=== PATIENT | female | born 1985 | race Caucasian/White ===

== ENCOUNTER 2019-06-03 13:18 | Emergency (ER) | payer SELFPAY ==
[2019-06-03 13:29] VITALS: BP 130/78; PULSE 87; RESP 16; TEMP 36.8; O2SAT 100; BMI 29.2
--- NOTE | 2019-06-03 14:15 | ED_ITS ---
Entered by Ciarra Morel, acting as scribe for Tyrell Garcia DO Jun 03, 2019 13:18 HPI - SOB/Dyspnea General: Chief Complaint: Shortness of Breath/Dyspnea Stated Complaint: flu s/s Time Seen by Provider: 06/03/19 14:15 PFSH ED PFSH: Social History Smoking and tobacco status: current every day smoker Female Reproductive History: Date of last menstrual period: 05/05/19 Course Vital Signs: Vital signs: Vital Signs Temperature 98.3 F 06/03/19 13:29 Pulse Rate 87 06/03/19 13:29 Respiratory Rate 16 06/03/19 13:29 Blood Pressure 130/78 06/03/19 13:29 Pulse Oximetry 100 06/03/19 13:29 Coding Level of Care Code ED 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
[2019-06-03 14:23] LABS: Influenza A by IFA Negative (Negative); Influenza B by IFA Positive (Negative)
--- NOTE | 2019-06-03 14:36 | W.ED.GENADLT ---
HPI - General Adult General: Chief complaint: Shortness of Breath/Dyspnea Stated complaint: flu s/s Time Seen by Provider: 06/03/19 14:15 History of Present Illness: HPI narrative: Patient complains of cough fever chills since yesterday is not short of breath. complaint: Flu Onset (ago): day(s) Severity scale (1-10): 6 Relieving factors: none Exacerbating factors: none Associated symptoms: Reports cough and fevers/chills; Deny chest pain, dyspnea, headache(s), nausea, rash or vomiting Review of Systems Const: Reports: fever, chills and body aches Eyes: Denies: change in vision or blurry vision ENMT: Denies: throat pain or nasal congestion Card: Denies: chest pain or shortness of breath on exertion Resp: Reports: non-productive cough; Denies: shortness of breath or productive cough GI: Denies: abdominal pain, nausea or vomiting Musc: Denies: extremity pain Skin/Breast: Denies: rash Neuro: Denies: headache Psych: Denies: anxiety or depression Jeremiah/Lymph: Denies: easy bruising PFSH ED PFSH: Social History Smoking and tobacco status: current every day smoker Female Reproductive History: Date of last menstrual period: 05/05/19 Physical Exam Const: COMMON NORMALS: no apparent distress, average body habitus and oriented x3 HENMT: COMMON NORMALS: normocephalic HEAD & SCALP: normal to inspection and normocephalic FACE & SINUS: normal facial exam Eye: COMMON NORMALS: conjunctivae normal GENERAL EYE: normal appearance of both eyes CONJUNCTIVA: Yes conjunctivae normal Neck/C-Spine: COMMON NORMALS: no JVD Chest: COMMONS NORMALS: inspection of chest normal Resp: COMMON NORMALS: normal respiratory effort and clear to auscultation bilaterally AUSCULTATION: clear to auscultation bilaterally Cardio: COMMON NORMALS: no JVD, regular rate and regular rhythm RATE: regular rate RHYTHM: regular rhythm GI: COMMON NORMALS: normal to inspection, nondistended, normoactive bowel sounds Extremity: COMMON NORMALS: normal to inspection and full ROM Neuro: COMMON NORMALS: oriented x3 Course Vital Signs: Vital signs: Vital Signs Temperature 98.3 F 06/03/19 13:29 Pulse Rate 87 06/03/19 13:29 Respiratory Rate 16 06/03/19 13:29 Blood Pressure 130/78 06/03/19 13:29 Pulse Oximetry 100 06/03/19 13:29 MDM - General Adult Lab Data: Labs: Lab Results 06/03/19 Range/Units 13:37 Influenza Type A A g Negative (Negative) POC Influenza B Ag Positive H (Negative) Discharge Plan Discharge Patient Disposition: Home, Self-Care Clinical Impression: Influenza Condition: Stable Prescriptions: New Tamiflu 75 mg capsule 75 mg PO BID 5 Days Qty: 10 RF: 0 Discharge Orders: Discharge Order (Routine); Ordered 06/03/19 Ordered By: Gerhard Fairbanks Discharge Diet: Advance as tolerated Discharge Activity: Increase activity as tolerated Patient Instructions: Influenza (ED) Activity Restrictions/Additional Instructions: Follow-up with medical provider as directed. Take medications as prescribed. Return to the ER or your medical provider if condition worsens. Please read and understand discharge instructions. If any questions ask please. Stand Alone Forms: Work/School Release Coding Level of Care Code ED Car Pick Up Driver for Kapil Finney
[2019-06-03 14:42] VITALS: BP 128/80; PULSE 79; RESP 15; O2SAT 97
== END 2019-06-03 14:43 | disposition home or self-care (01) ==
PROVIDERS: Emergency Medicine; Emergency Provider Nurse Practitioner Family
DX: J11.1 Influenza due to unidentified influenza virus with other respiratory manifestations (principal); F17.200 Nicotine dependence, unspecified, uncomplicated
CPT/HCPCS: 12345; 87804; 99282

== ENCOUNTER → 2020-02-26 14:27 | Outpatient (BNVA) | payer SELFPAY | PROVIDERS: Visit Provider Nurse Practitioner Family | DX: Z20.828 Contact with and (suspected) exposure to other viral communicable diseases (principal) | CPT/HCPCS: 87635 ==

== ENCOUNTER 2021-01-01 08:26 | Emergency (ER) | payer SELFPAY ==
[2021-01-01 08:35] VITALS: BP 145/84; PULSE 82; RESP 18; TEMP 36.1; O2SAT 100; BMI 28.8
--- NOTE | 2021-01-01 09:00 | USR_ITS ---
PROCEDURE INFORMATION: Exam: US Pelvis Complete, Transabdominal and US Pelvis, Transvaginal Exam date and time: 01/01/2021 9:00 AM Age: 35 years old Clinical indication: Pelvic pain; Additional info: L pelvic pain TECHNIQUE: Imaging protocol: Real-time transabdominal and transvaginal pelvic ultrasound (complete) with image documentation. Transvaginal imaging was used for better evaluation of the endometrium, adnexa, and/or cervix. COMPARISON: CR Sacrum and Coccyx [id number] 10/07/2018 11:52 AM FINDINGS: Uterus/cervix: Submucosal mass consistent with fibroid estimated at 2 cm. Trace fluid in the endometrial canal. Endometrial stripe is normal. Right adnexa: Normal. No mass. Normal ovarian blood flow. Left adnexa: 2 x 2.7 cm cyst. No mass. Normal ovarian blood flow. Intraperitoneal space: Minimal intraperitoneal fluid. Urinary bladder: Normal. US/US pelvic with transvaginal IMPRESSION: Probable submucosal fibroid. Minimal free fluid. Radiation Dose CTDIVOL = (mGy): DLP = (mGy-cm)
--- NOTE | 2021-01-01 09:00 | CTR_ITS ---
PROCEDURE INFORMATION: Exam: CT Abdomen And Pelvis With Contrast Exam date and time: 01/01/2021 9:00 AM Age: 35 years old Clinical indication: Abdominal pain; Additional info: Abd pain TECHNIQUE: Imaging protocol: Computed tomography of the abdomen and pelvis with contrast. Radiation optimization: All CT scans at this facility use at least one of these dose optimization techniques: automated exposure control; mA and/or kV adjustment per patient size (includes targeted exams where dose is matched to clinical indication); or iterative reconstruction. Contrast material: OMNI 300; Contrast volume: 95 ml; Contrast route: INTRAVENOUS (IV); COMPARISON: US pelvic with transvaginal 01/01/2021 9:45 AM RADIATION DOSE METRICS: Total DLP (mGy-cm): 1232.63 FINDINGS: Liver: No mass. Gallbladder and bile ducts: Unremarkable. No ductal dilation. Pancreas: Normal. No ductal dilation. Spleen: Normal. No splenomegaly. Adrenal glands: Normal. No mass. Kidneys and ureters: Normal. No hydronephrosis. Stomach and bowel: Colonic bowel wall thickening extending from the cecum to the sigmoid colon, most prominent in the ascending colon. No pneumatosis. No bowel obstruction. No small bowel wall thickening Appendix: No evidence of appendicitis. Intraperitoneal space: Minimal free fluid in the pelvis, no pneumoperitoneum or abscess. Vasculature: No abdominal aortic aneurysm. Lymph nodes: No significant adenopathy. Urinary bladder: Underdistended but unremarkable. Reproductive: Rounded 3 cm uterine lesion consistent with submucosal fibroid. Smaller rounded enhancing lesion in the uterine fundus consistent with fibroid estimated at 1.5 cm. Bones/joints: No acute findings. Soft tissues: Unremarkable. CT/CT abdomen pelvis w con* [id number] IMPRESSION: Colitis. Additional findings as above. Radiation Dose CTDIVOL = (mGy): DLP = 1232.63 (mGy-cm)
[2021-01-01] MEDS: ondansetron 2 mg/ML SDV 2 mL 4 MG IVP ×2 (09:02→13:04)
[2021-01-01] MEDS: sodium chloride 0.9% 1,000 ML 999 ML IV ×2 (09:02→12:55)
--- NOTE | 2021-01-01 09:03 | W.ED.ABDPA2 ---
HPI - Abdominal Pain General: Chief Complaint: Abdominal Pain Stated Complaint: LLQ SHARP ABD PAIN, N/V/D Time Seen by Provider: 01/01/21 08:38 History of Present Illness: HPI narrative: 35-year-old female presents emergency room with left lower quadrant abdominal pain with nausea vomiting diarrhea is feeling for 3 days. She thought she seen a little bit of blood in the stools she has been having excessive diarrhea. She states she had a poor appetite and has had vomiting. Denies any hematemesis or coffee-ground emesis. She denies any dysuria urgency or frequency. No previous surgeries. MD elicited complaint: abdominal pain Onset (ago): day(s) (3) Pain Consistency: intermittent and colicky Location: LLQ Severity: mild Quality: cramping Radiation: none Migration to: no migration Exacerbating factors: nothing Relieving factors: nothing Associated Symptoms: Reports anorexia, bloating, change in bowel habits, change in stool character, GI cramping and hematochezia; Denies belching, chills, coffee ground emesis, constipation, diarrhea, dyspepsia, dysuria, excessive flatus, fever(s), heartburn, hematuria, hematemesis, fecal incontinence, loose stools, melena, nausea, poor appetite, syncope and vomiting Related Data: Date of Last Menstrual Period: 05/05/19 Review of Systems Const: Denies: fever(s) or chills ENMT: Denies: throat pain, ear or mastoid pain, nasal discharge or nasal congestion Card: Denies: syncope Resp: Denies: dyspnea, productive cough or non-productive cough GI: Reports: bloating, GI cramping, change in bowel habits, change in stool character and hematochezia; Denies: nausea, vomiting, hematemesis, coffee ground emesis, heartburn, diarrhea, constipation, belching, excessive flatus, fecal incontinence or melena : Denies: dysuria or hematuria Skin/Breast: Denies: rash or pruritus PFSH ED PFSH: Social History Smoking and tobacco status: current every day smoker Female Reproductive History: Date of last menstrual period: 05/05/19 Physical Exam Const: COMMON NORMALS: no acute distress GENERAL APPEARANCE: cooperative and comfortable ORIENTATION/CONSCIOUSNESS: Yes awake, Yes oriented to person, Yes oriented to place and Yes oriented to time HENMT: COMMON NORMALS: normocephalic, atraumatic and hearing grossly normal bilaterally HEAD & SCALP: normocephalic and atraumatic Neck/C-Spine: COMMON NORMALS: no JVD Lymph: LYMPHATIC: no lymphadenopathy noted and no lymphedema noted Resp: COMMON NORMALS: normal respiratory effort, No retractions, No use of accessory muscles and clear to auscultation bilaterally AUSCULTATION: clear to auscultation bilaterally Cardio: COMMON NORMALS: no JVD, regular rate, regular rhythm and No murmurs present (Cardio) RATE: regular rate RHYTHM: regular rhythm GI: COMMON NORMALS: Soft to palpation and No hepatosplenomegaly present AUSCULTATION: Yes normoactive bowel sounds PALPATION: Yes Soft to palpation, No Tenderness to palpation present (GI), No Guarding due to palpation present (GI) and Yes No hepatosplenomegaly present Extremity: COMMON NORMALS: normal to inspection, capillary refill normal, no clubbing, cyanosis or edema, no calf tenderness and no pedal edema Neuro: SENSORIUM/ORIENTATION: Yes oriented to person, Yes oriented to place and Yes oriented to time Skin: COMMON NORMALS: no rashes or lesions noted GENERAL SKIN EXAM: no rashes or lesions noted Course Vital Signs: Vital signs: Vital Signs Temperature 97.0 F L 01/01/21 08:35 Pulse Rate 82 01/01/21 08:35 Respiratory Rate 18 01/01/21 13:04 Blood Pressure 145/84 01/01/21 08:35 Pulse Oximetry 100 01/01/21 08:35 MDM - Abdominal Pain MDM Narrative: Medical decision making narrative: Labs imaging reviewed. Discussed the patient will discharge patient home on Cipro and Flagyl. She does look like she has a colitis on imaging additionally she has a mild cystitis Cipro should cover in both cases. Clinical diet for 48 hours and advance as tolerated return if has problems. Lab Data: Labs: Lab Results 01/01/21 01/01/21 01/01/21 09:00 09:00 09:00 WBC 15.8 10^3/uL H 10 ^3/uL (4.0-10.0) RBC 4.72 10^6/uL 10^6 /uL (4.1-5.3) Hgb 14.9 g/dL g/dL (11.5-15.3) Hct 43.3 % % (37.0-47.0) MCV 91.7 fl fl (81-99) MCH 31.6 pg pg (28.0-34.0) MCHC 34.4 g/dL g/dL (30.0-36.0) RDW 12.0 % L % (12.1-15.1) Plt Count 279 10^3/cmm 10^3 /cmm (130-400) MPV 10.1 fL fL (7.4-10.4) Neut % (Auto) 80.4 % % Lymph % (Auto) 11.5 % % [place] % (Auto) 6.7 % % Eos % (Auto) 0.6 % % Baso % (Auto) 0.4 % % Neut # (Auto) 12.69 10^3/uL H 1 0^3/uL (1.8-7.7) Lymph # (Auto) 1.8 10^3/uL 10^3/ uL (0.8-4.8) [place] # (Auto) 1.1 10^3/uL H 10^ 3/uL (0.2-0.9) Eos # (Auto) 0.1 10^3/uL 10^3/ uL (0.0-0.8) Baso # (Auto) 0.1 10^3/uL 10^3/ uL (0.0-0.1) Nucleated RBC % (a uto) 0 % % Nucleated RBCs # 0.0 /100WBC /100W BC Sodium 134 mmol/L L mmol /L (136-145) Potassium 3.5 mmol/L mmol/L (3.5-5.1) Chloride 96 mmol/L L mmol/ L (98-107) Carbon Dioxide 26 mmol/L mmol/L (22-29) Anion Gap 15.5 (5-19) BUN 11 mg/dL mg/dL (6-20) Creatinine 0.6 mg/dL mg/dL (0.5-0.9) GFR Calculation 114.4 mL/min mL/m in (90-130) Glucose 100 mg/dL mg/dL (65-115) Calculated Osmolal ity 277 mOsm/kg L mOs m/kg (285-295) Calcium 9.3 mg/dL mg/dL (8.5-10.5) Total Bilirubin 0.4 mg/dL mg/dL (0.15-1.2) AST 14 U/L U/L (0-32) ALT 13 U/L U/L (0-33) Alkaline Phosphata se 83 IU/L IU/L (35-105) Total Protein 7.8 g/dL g/dL (6.6-8.7) Albumin 4.0 g/dL g/dL (3.5-5.2) Globulin 3.8 g/dL g/dL (1.3-4.6) HCG, Qual Urine Color Yellow (Yellow) Urine Appearance Sl hazy (CLEAR) Urine pH 6 (5-7) Ur Specific Gravit y 1.010 (1.005-1.030) Urine Protein 3+ H (Negative) Urine Glucose (UA) Norm (Normal) Urine Ketones 2+ H (Negative) Urine Blood 3+ H (Negative) Urine Nitrate Negative (Negative) Urine Bilirubin Neg (Negative) Urine Urobilinogen Norm mg/dL mg/dL (Negative) Ur Leukocyte Renetta ase Negative (Negative) Urine RBC 10-15 /hpf H /hpf (0-2) Urine WBC 5-10 /hpf H /hpf (0-5) Ur Squamous Epith Cells 10-15 /hpf H /hpf (0-5) Amorphous Sediment Not Reportable Urine Bacteria 1+ /hpf H /hpf (NONE) Urine Mucus 1+ /hpf /hpf 01/01/21 01/01/21 09:00 11:50 WBC RBC Hgb Hct MCV MCH MCHC RDW Plt Count MPV Neut % (Auto) Lymph % (Auto) [place] % (Auto) Eos % (Auto) Baso % (Auto) Neut # (Auto) Lymph # (Auto) [place] # (Auto) Eos # (Auto) Baso # (Auto) Nucleated RBC % (a uto) Nucleated RBCs # Sodium Potassium Chloride Carbon Dioxide Anion Gap BUN Creatinine GFR Calculation Glucose Calculated Osmolal ity Calcium Total Bilirubin AST ALT Alkaline Phosphata se Total Protein Albumin Globulin HCG, Qual Negative (Negative) Urine Color Straw (Yellow) Urine Appearance Clear (CLEAR) Urine pH 6.5 (5-7) Ur Specific Gravit y 1.005 (1.005-1.030) Urine Protein 2+ H (Negative) Urine Glucose (UA) Norm (Normal) Urine Ketones 2+ H (Negative) Urine Blood 3+ H (Negative) Urine Nitrate Negative (Negative) Urine Bilirubin Neg (Negative) Urine Urobilinogen Norm mg/dL mg/dL (Negative) Ur Leukocyte Renetta ase Negative (Negative) Urine RBC 40-50 /hpf H /hpf (0-2) Urine WBC Rare /hpf /hpf (0-5) Ur Squamous Epith Cells 5-10 /hpf H /hpf (0-5) Amorphous Sediment Not Reportable Urine Bacteria 1+ /hpf H /hpf (NONE) Urine Mucus Trace /hpf /hpf Discharge Plan Discharge Patient Disposition: Home Clinical Impression: Colitis, Cystitis Condition: Stable Prescriptions: New Cipro 500 mg tablet 500 mg PO BID Qty: 14 RF: 0 Flagyl 500 mg tablet 500 mg PO BID 7 Days Qty: 14 RF: 0 hydrocodone-acetaminophen 5-325 mg tablet 1 tab PO Q6H PRN (Reason: pain) Qty: 15 RF: 0 Zofran 4 mg tablet 4 mg PO Q6H PRN (Reason: nausea and vomiting) Qty: 20 RF: 0 Discharge Orders: Discharge ED (Routine); Ordered 01/01/21 Ordered By: Hilton Abarca Discharge Diet: Clear Liquid Discharge Activity: Increase activity as tolerated Patient Instructions: Opioid Safety Activity Restrictions/Additional Instructions: Liquid diet for 48 hours and advance as tolerated. Follow-up with primary care doc within the next 10 to 14 days return if having worsening problems. Coding Level of Care Code ED Operating Room Tech for Kapil Fwd Exam Comprehensive
[2021-01-01 09:31] LABS: Basophils # 0.1 10^3/uL (0.0-0.1); Basophils % 0.4 %; Eosinophils # 0.1 10^3/uL (0.0-0.8); Eosinophils % 0.6 %; Hematocrit 43.3 % (37.0-47.0); Hemoglobin 14.9 g/dL (11.5-15.3); Lymphocytes # 1.8 10^3/uL (0.8-4.8); Lymphocytes % 11.5 %; Mean Corpuscular HGB Conc 34.4 g/dL (30.0-36.0); Mean Corpuscular Hemoglobin 31.6 pg (28.0-34.0); Mean Corpuscular Volume 91.7 fl (81-99); Mean Platelet Volume 10.1 fL (7.4-10.4); Monocytes # 1.1 10^3/uL (0.2-0.9); Monocytes % 6.7 %; Neutrophils # 12.69 10^3/uL (1.8-7.7); Neutrophils % 80.4 %; Nucleated Red Blood Cells % 0 %; Platelet Count 279 10^3/cmm (130-400); Red Blood Count 4.72 10^6/uL (4.1-5.3); White Blood Count 15.8 10^3/uL (4.0-10.0)
[2021-01-01 10:00] LABS: Add Urine Microscopic? YES; Bilirubin Urine Neg (Negative); Blood Urine 3+ (Negative); Glucose Urine UA Norm (Normal); HCG Qualitative Urine. Negative (Negative); Ketones Urine 2+ (Negative); Leukocyte Esterase Urine Negative (Negative); Nitrate Urine Negative (Negative); Protein Urine 3+ (Negative); Urine Appearance SL Hazy (CLEAR); Urine Color Yellow (Yellow); Urobilinogen Urine Norm (Negative); pH Urine 6 (5-7)
[2021-01-01 10:01] LABS: Add Urine Culture? No; Bacteria Urine 1+ /hpf; Mucus Urine 1+ /hpf
[2021-01-01 10:14] LABS: Alanine Aminotransferase 13 U/L (0-33); Alkaline Phosphatase 83 IU/L (35-105); Anion Gap 15.5 (5-19); Aspartate Amino Transferase 14 U/L (0-32); Blood Urea Nitrogen 11 mg/dL (6-20); Calcium 9.3 mg/dL (8.5-10.5); Carbon Dioxide 26 mmol/L (22-29); Chloride 96 mmol/L (98-107); Globulin 3.8 g/dL (1.3-4.6); Glomerular Filtration Rate 114.4 mL/min (90-130); Glucose 100 mg/dL (65-115); Osmolality Calculated 277 mOsm/kg (285-295); Potassium 3.5 mmol/L (3.5-5.1); Sodium 134 mmol/L (136-145); Total Bilirubin 0.4 mg/dL (0.15-1.2); Total Protein 7.8 g/dL (6.6-8.7)
[2021-01-01] MEDS: iohexol 300 mg/mL 100 mL Btl IV (10:21)
[2021-01-01 12:44] LABS: Add Urine Microscopic? YES; Bilirubin Urine Neg (Negative); Blood Urine 3+ (Negative); Glucose Urine UA Norm (Normal); Ketones Urine 2+ (Negative); Leukocyte Esterase Urine Negative (Negative); Nitrate Urine Negative (Negative); Protein Urine 2+ (Negative); Specific Gravity, Urine 1.005 (1.005-1.030); Urine Appearance Clear (CLEAR); Urine Color Straw (Yellow); Urobilinogen Urine Norm (Negative); pH Urine 6.5 (5-7)
[2021-01-01 13:04] VITALS: RESP 18
[2021-01-01 13:04] LABS: Bacteria Urine 1+ /hpf; Mucus Urine TRACE /hpf; RBC Urine 40-50 /hpf (0-2); WBC Urine RARE /hpf (0-5)
[2021-01-01] MEDS: morphine 4 mg/mL SDV 1 mL IVP (13:04)
[2021-01-01 13:05] LABS: Add Urine Culture? Yes
--- NOTE | 2021-01-01 13:19 | CTR_ITS ---
PROCEDURE INFORMATION: Exam: CT Abdomen And Pelvis Without Contrast Exam date and time: 01/01/2021 1:19 PM Age: 35 years old Clinical indication: Abdominal pain; Flank; Left; Additional info: Flank pain TECHNIQUE: Imaging protocol: Computed tomography of the abdomen and pelvis without contrast. Radiation optimization: All CT scans at this facility use at least one of these dose optimization techniques: automated exposure control; mA and/or kV adjustment per patient size (includes targeted exams where dose is matched to clinical indication); or iterative reconstruction. COMPARISON: CT abdomen pelvis w con* [id number] 01/01/2021 10:18 AM RADIATION DOSE METRICS: Total DLP (mGy-cm): 925.31 FINDINGS: Liver: No mass. Gallbladder and bile ducts: Unremarkable. No ductal dilation. Pancreas: Normal. No ductal dilation. Spleen: Normal. No splenomegaly. Adrenal glands: Normal. No mass. Kidneys and ureters: Contrast excretion from prior intravenous contrast administration, no hydronephrosis or renal mass. No renal calculi seen on the prior examination. Stomach and bowel: Colonic bowel wall thickening best seen in the ascending and transverse colon. No bowel obstruction. No pneumatosis. Appendix: No evidence of appendicitis. Intraperitoneal space: Minimal free fluid, no pneumoperitoneum or abscess. Vasculature: No abdominal aortic aneurysm. Lymph nodes: No significant adenopathy. Urinary bladder: Unremarkable as visualized. Reproductive: Nondistended. Bones/joints: No acute findings. Soft tissues: Unremarkable. CT/CT kidney stone [id number] IMPRESSION: Colitis. No urinary tract obstruction. Radiation Dose CTDIVOL = (mGy): DLP = 925.31 (mGy-cm)
== END 2021-01-01 14:42 | disposition home or self-care (01) ==
PROVIDERS: Emergency Provider Family Medicine
DX: K52.9 Noninfective gastroenteritis and colitis, unspecified (principal); N30.90 Cystitis, unspecified without hematuria; F17.210 Nicotine dependence, cigarettes, uncomplicated
CPT/HCPCS: 74176; 74177; 76830; 76856; 80053; 81001; 81025; 85025; 87086; 96361; 96374; 96375; 96376; 99284; J2270; J2405; J7030; Q9967

== ENCOUNTER 2022-02-12 01:12 | Emergency (ER) | payer BC, MEDICAID, SELFPAY ==
[2022-02-12 01:17] VITALS: BP 113/66; PULSE 85; RESP 17; TEMP 37.2; O2SAT 99; BMI 30.9
[2022-02-12 02:34] LABS: Basophils % 0.2 %; Hematocrit 48.1 % (37.0-47.0); Hemoglobin 17.1 g/dL (11.5-15.3); Lymphocytes # 1.1 10^3/uL (0.8-4.8); Mean Corpuscular HGB Conc 35.6 g/dL (30.0-36.0); Mean Corpuscular Volume 90.1 fl (81-99); Mean Platelet Volume 9.5 fL (7.4-10.4); Monocytes # 0.6 10^3/uL (0.2-0.9); Monocytes % 9.2 %; Neutrophils # 4.68 10^3/uL (1.8-7.7); Neutrophils % 73.1 %; Nucleated Red Blood Cells % 0 %; Platelet Count 199 10^3/cmm (130-400); Red Blood Count 5.34 10^6/uL (4.1-5.3); Red Cell Distribution Width 11.9 % (12.1-15.1); White Blood Count 6.4 10^3/uL (4.0-10.0)
[2022-02-12 02:46] LABS: HCG, Serum Qual Negative (Negative)
[2022-02-12 02:49] LABS: Alanine Aminotransferase 30 U/L (0-33); Albumin Level 4.8 g/dL (3.5-5.2); Alkaline Phosphatase 52 U/L (35-105); Anion Gap 17.3 (5-19); Aspartate Amino Transferase 34 U/L (0-32); Blood Urea Nitrogen 15 mg/dL (6-20); C Reactive Protein 7.9 mg/L (0.0-4.9); Calcium 9.8 mg/dL (8.5-10.5); Carbon Dioxide 31 mmol/L (22-29); Chloride 90 mmol/L (98-107); Globulin 3.1 g/dL (1.3-4.6); Glomerular Filtration Rate 81.6 mL/min (90-130); Glucose 111 mg/dL (65-115); Lipase 35 U/L (13-60); Osmolality Calculated 282 mOsm/kg (285-295); Potassium 3.3 mmol/L (3.5-5.1); Sodium 135 mmol/L (136-145); Total Bilirubin 0.4 mg/dL (0.15-1.2); Total Protein 7.9 g/dL (6.6-8.7)
[2022-02-12 02:51] VITALS: BP 122/79; PULSE 89; RESP 18; TEMP 37.3; O2SAT 95
[2022-02-12] MEDS: ondansetron 2 mg/ML SDV 2 mL 4 MG IVP (02:58)
[2022-02-12] MEDS: sodium chloride 0.9% 1,000 ML 999 ML IV ×2 (02:58→03:57)
[2022-02-12] MEDS: ketorolac 30 mg/mL INJ 15 MG IVP (02:59)
[2022-02-12 03:09] LABS: Bilirubin Urine Neg (Negative); Blood Urine 3+ (Negative); Glucose Urine UA Norm (Normal); Ketones Urine 1+ (Negative); Leukocyte Esterase Urine Negative (Negative); Nitrate Urine Negative (Negative); Protein Urine 3+ (Negative); Urine Appearance Clear (CLEAR); Urine Color Yellow (Yellow); Urobilinogen Urine Neg (Negative); pH Urine 6.5 (5-7)
[2022-02-12 03:10] LABS: Add Urine Microscopic? YES
[2022-02-12 03:11] LABS: Add Urine Culture? No; Bacteria Urine 1+ /hpf; Squamous Epithelial Cell Urine 15-25 /hpf (0-5); WBC Urine 0-4 /hpf (0-5)
--- NOTE | 2022-02-12 03:18 | ED_ITS ---
HPI - Abdominal Pain General: Chief Complaint: Abdominal Pain Stated Complaint: abdomen pain Time Seen by Provider: 02/12/22 02:24 Source: patient History of Present Illness: 36-year-old female with a 2-day history of abdominal pain, vomiting and diarrhea. She notes that she believes she is experiencing abdominal pain because of all of vomiting. Pain is located in the epigastrium. No history of belly surgery. MD elicited complaint: abdominal pain Pertinent past history: other Onset (ago): day(s) Pain Consistency: constant Location: Diffuse Quality: cramping and stabbing Radiation: back Migration to: no migration Exacerbating factors: nothing Relieving factors: nothing Associated Symptoms: Reports change in stool character, chills, GI cramping, diarrhea, fever(s), nausea and vomiting Related Data: Date of Last Menstrual Period: 05/05/19 Review of Systems Const: Reports: fever(s) and chills ENMT: Denies: throat pain Card: Denies: chest pain or palpitations Resp: Denies: dyspnea, productive cough or non-productive cough GI: Reports: abdominal pain, nausea, vomiting, diarrhea, GI cramping and change in stool character PFS ED PFSH: Social History Smoking and tobacco status: current every day smoker Female Reproductive History: Date of last menstrual period: 05/05/19 Physical Exam Const: COMMON NORMALS: no acute distress GENERAL APPEARANCE: cooperative; not frail appearing NUTRITIONAL APPEARANCE: overweight ORIENTATION/CONSCIOUSNESS: Yes awake, Yes oriented to person and Yes oriented to place HENMT: COMMON NORMALS: normocephalic and Normal external nose present HEAD & SCALP: normocephalic FACE & SINUS: normal facial exam and face symmetric NOSE: Normal external nose present Eye: COMMON NORMALS: Equal, round and reactive pupils present and EOMs intact bilaterally PUPIL: Yes Equal, round and reactive pupils present Neck/C-Spine: GENERAL: Yes trachea midline Chest: CHEST: Yes Symmetrical chest wall rise Resp: COMMON NORMALS: normal respiratory effort, No retractions, No use of accessory muscles and clear to auscultation bilaterally AUSCULTATION: clear to auscultation bilaterally Cardio: COMMON NORMALS: regular rate and regular rhythm RATE: regular rate RHYTHM: regular rhythm GI: COMMON NORMALS: Normal to inspection, nondistended, normoactive bowel sounds present PALPATION: Yes Tenderness to palpation present (GI) (epigastric) Extremity: COMMON NORMALS: no pedal edema Neuro: NAYANA COMA SCALE: document GCS findings [place] coma scale eye opening: Spontaneous [place] coma scale verbal response: Orientated [place] coma scale motor response: Obey commands Nayana coma scale total score: 15 SENSORIUM/ORIENTATION: Yes oriented to person and Yes oriented to place SENSORY EXAM: Yes extremities (intact) Psych: COMMON NORMALS: speech normal SPEECH: Yes normal speech Skin: COMMON NORMALS: no rashes or lesions noted GENERAL SKIN EXAM: no rashes or lesions noted Course Vital Signs: Vital signs: Vital Signs Temperature 99.1 F 02/12/22 02:51 Pulse Rate 70 02/12/22 05:26 Respiratory Rate 18 02/12/22 05:26 Blood Pressure 114/77 02/12/22 05:26 Pulse Oximetry 96 02/12/22 05:26 Oxygen Delivery Me thod 02/12/22 01:17 MDM - Abdominal Pain Medical Decision Making labs are not remarkable. she is improved after fluid, medication for symptoms here. will allow dc. Lab Data 02/12/22 02:27 02/12/22 02:27 Labs/Radiology: Laboratory Results WBC 6.4 10^3/uL (4.0-10.0) 02/12/22 02:27 RBC 5.34 10^6/uL (4.1-5.3) H 02/12/22 02:27 Hgb 17.1 g/dL (11.5-15.3) H 02/12/22 02:27 Hct 48.1 % (37.0-47.0) H 02/12/22 02:27 MCV 90.1 fl (81-99) 02/12/22 02:27 MCH 32.0 pg (28.0-34.0) 02/12/22 02:27 MCHC 35.6 g/dL (30.0-36.0) 02/12/22 02:27 RDW 11.9 % (12.1-15.1) L 02/12/22 02:27 Plt Count 199 10^3/cmm (130-400) 02/12/22 02:27 MPV 9.5 fL (7.4-10.4) 02/12/22 02:27 Neut % (Auto) 73.1 % 02/12/22 02:27 Lymph % (Auto) 17.0 % 02/12/22 02:27 [place] % (Auto) 9.2 % 02/12/22 02:27 Eos % (Auto) 0.0 % 02/12/22 02:27 Baso % (Auto) 0.2 % 02/12/22 02:27 Neut # (Auto) 4.68 10^3/uL (1.8-7.7) 02/12/22 02:27 Lymph # (Auto) 1.1 10^3/uL (0.8-4.8) 02/12/22 02:27 [place] # (Auto) 0.6 10^3/uL (0.2-0.9) 02/12/22 02:27 Eos # (Auto) 0.0 10^3/uL (0.0-0.8) 02/12/22 02: Baso # (Auto) 0.0 10^3/uL (0.0-0.1) 02/12/22 02:27 Nucleated RBC % (auto) 0 % 02/12/22 02: Nucleated RBCs # 0.0 /100WBC 02/12/22 02:27 Sodium 135 mmol/L (136-145) L 02/12/22 02:27 Potassium 3.3 mmol/L (3.5-5.1) L 02/12/22 02:27 Chloride 90 mmol/L (98-107) L 02/12/22 02:27 Carbon Dioxide 31 mmol/L (22-29) H 02/12/22 02:27 Anion Gap 17.3 (5-19) 02/12/22 02:27 BUN 15 mg/dL (6-20) 02/12/22 02:27 Creatinine 0.8 mg/dL (0.5-0.9) 02/12/22 02:27 GFR Calculation 81.6 mL/min (90-130) L 02/12/22 02:27 Glucose 111 mg/dL (65-115) 02/12/22 02:27 Calculated Osmolality 282 mOsm/kg (285-295) L 02/12/22 02:27 Calcium 9.8 mg/dL (8.5-10.5) 02/12/22 02:27 Total Bilirubin 0.4 mg/dL (0.15-1.2) 02/12/22 02:27 AST 34 U/L (0-32) H 02/12/22 02:27 ALT 30 U/L (0-33) 02/12/22 02:27 Alkaline Phosphatase 52 U/L (35-105) 02/12/22 02:27 C-Reactive Protein 7.9 mg/L (0.0-4.9) H 02/12/22 02:27 Total Protein 7.9 g/dL (6.6-8.7) 02/12/22 02:27 Albumin 4.8 g/dL (3.5-5.2) 02/12/22 02:27 Globulin 3.1 g/dL (1.3-4.6) 02/12/22 02:27 Lipase 35 U/L (13-60) 02/12/22 02:27 HCG, Qual Negative (Negative) 02/12/22 02:27 Urine Color Yellow (Yellow) 02/12/22 02:53 Urine Appearance Clear (CLEAR) 02/12/22 02:53 Urine pH 6.5 (5-7) 02/12/22 02:53 Ur Specific [place] 1.010 (1.005-1.030) 02/12/22 02:53 Urine Protein 3+ (Negative) H 02/12/22 02:53 Urine Glucose (UA) Norm (Normal) 02/12/22 02:53 Urine Ketones 1+ (Negative) H 02/12/22 02:53 Urine Blood 3+ (Negative) H 02/12/22 02:53 Urine Nitrate Negative (Negative) 02/12/22 02:53 Urine Bilirubin Neg (Negative) 02/12/22 02:53 Urine Urobilinogen Neg mg/dL (Negative) 02/12/22 02:53 Ur Leukocyte Esterase Negative (Negative) 02/12/22 02:53 Urine RBC 5-10 /hpf (0-2) H 02/12/22 02:53 Urine WBC 0-4 /hpf (0-5) H 02/12/22 02:53 Ur Squamous Epith Cells 15-25 /hpf (0-5) H 02/12/22 02:53 Amorphous Sediment Not Reportable 02/12/22 02:53 Urine Bacteria 1+ /hpf (NONE) H 02/12/22 02:53 Discharge Plan Discharge Patient Disposition: Home Clinical Impression: Gastritis Condition: Stable Prescriptions: New famotidine 40 mg tablet 40 mg PO BID Qty: 60 0RF ondansetron 4 mg film 4 mg PO DAILY PRN (Reason: nausea and vomiting) Qty: 10 0RF No Action Cipro 500 mg tablet 500 mg PO BID Qty: 14 0RF hydrocodone-acetaminophen 5-325 mg tablet 1 tab PO Q6H PRN (Reason: pain) Qty: 15 0RF Zofran 4 mg tablet 4 mg PO Q6H PRN (Reason: nausea and vomiting) Qty: 20 0RF Discharge Orders: Discharge ED (Routine); Ordered 02/12/22 Ordered By: Aditya Huber Patient Instructions: Gastritis (ED) Activity Restrictions/Additional Instructions: Return for continued fever greater than 100 for more than 24 hours, worsening pain despite treatment, vomiting liquids or medications despite treatment, blood in the stool, any other concerning symptoms. See your doctor early this week. Coding Level of Care Code ED Wall Man for Ankushg Fwd Exam Comprehensive
[2022-02-12] MEDS: lidocaine 2% viscous 15 ML, aluminum-mag hydrox-simethicon 30 ML, sucralfate oral liq 1 GM PO (03:57)
[2022-02-12] MEDS: haloperidol inj 5 mg/mL INJ 1 mL 3 MG IVP (04:46)
[2022-02-12 04:47] VITALS: RESP 18
[2022-02-12] MEDS: morphine 4 mg/mL SDV 1 mL IVP (04:47)
[2022-02-12 04:49] VITALS: BP 114/77; PULSE 70; RESP 18; O2SAT 96
[2022-02-12 05:26] VITALS: BP 114/77; PULSE 70; RESP 18; O2SAT 96
== END 2022-02-12 05:10 | disposition home or self-care (01) ==
PROVIDERS: Emergency Provider Emergency Medicine
DX: K29.70 Gastritis, unspecified, without bleeding (principal); F17.210 Nicotine dependence, cigarettes, uncomplicated
CPT/HCPCS: 80053; 81001; 83690; 84703; 85025; 86140; 96361; 96374; 96375; 99285; J1630; J1885; J2270; J2405; J7030

== ENCOUNTER → 2023-11-19 10:07 | Outpatient (BNVA) | payer BC, SELFPAY | PROVIDERS: Visit Provider Psychiatry & Neurology Psychiatry | DX: F11.20 Opioid dependence, uncomplicated (principal); Z79.899 Other long term (current) drug therapy | CPT/HCPCS: 80307 ==

== ENCOUNTER → 2023-12-31 11:28 | Outpatient (BNVA) | payer BC, SELFPAY | PROVIDERS: Visit Provider Psychiatry & Neurology Psychiatry | DX: Z79.899 Other long term (current) drug therapy (principal); F11.20 Opioid dependence, uncomplicated | CPT/HCPCS: 80307 ==

== ENCOUNTER 2024-03-08 19:00 | Emergency (ER) | payer BC, MEDICAID, SELFPAY ==
[2024-03-08 19:54] VITALS: BP 100/62; PULSE 71; RESP 17; TEMP 36.6; O2SAT 100; BMI 28.3
[2024-03-08 19:58] LABS: Basophils % 0.5 %; Eosinophils # 0.2 10^3/uL (0.0-0.8); Eosinophils % 2.3 %; Hematocrit 39.5 % (36-47); Lymphocytes # 1.8 10^3/uL (0.8-4.8); Lymphocytes % 27.3 %; Mean Corpuscular HGB Conc 33.2 g/dL (30-55); Mean Corpuscular Hemoglobin 32.8 pg (27-33); Mean Corpuscular Volume 98.8 fl (85-98); Monocytes # 0.3 10^3/uL (0.2-0.9); Neutrophils # 4.31 10^3/uL (1.8-7.7); Neutrophils % 64.6 %; Nucleated Red Blood Cells % 0 %; Platelet Count 205 10^3/cmm (157-399); Red Cell Distribution Width 12.1 % (12.1-15.1); White Blood Count 6.66 10^3/uL (3.29-11.43)
[2024-03-08 20:16] LABS: Alanine Aminotransferase 24 U/L (0-33); Albumin Level 4.2 g/dL (3.5-5.2); Alkaline Phosphatase 47 U/L (35-105); Anion Gap 11.9 (5-19); Aspartate Amino Transferase 24 U/L (0-32); Blood Urea Nitrogen 15 mg/dL (6-20); Calcium 9.2 mg/dL (8.5-10.5); Carbon Dioxide 28 mmol/L (22-29); Chloride 100 mmol/L (98-107); Creatinine Clr Calc Pharmacy 109.0157; Globulin 2.4 g/dL (1.3-4.6); Glomerular Filtration Rate 94.2 mL/min (90-130); Glucose 120 mg/dL (65-115); Osmolality Calculated 284 mOsm/kg (285-295); Potassium 3.9 mmol/L (3.5-5.1); Sodium 136 mmol/L (136-145); Total Bilirubin 0.3 mg/dL (0.15-1.2); Total Protein 6.6 g/dL (6.6-8.7)
== END 2024-03-08 21:18 | disposition left against medical advice (07) ==
PROVIDERS: Emergency Medicine; Emergency Provider Family Medicine; PCP Family Medicine
DX: Z53.21 Procedure and treatment not carried out due to patient leaving prior to being seen by health care provider (principal)
CPT/HCPCS: 36415; 80053; 85025